=== PATIENT | female | born 1955 | race Hispanic/Latino ===

== ENCOUNTER 2017-07-25 14:35 | Outpatient (CLI) | payer OTHER ==
--- NOTE | 2017-07-25 16:28 | Mammography Report ---
BILATERAL DIGITAL SCREENING MAMMOGRAM with CAD : 07/25/17 14:35:00 CLINICAL: Routine screening. COMPARISON:08/09/16, 08/11/15 and 08/04/14 FINDINGS: The breasts are heterogeneously dense, which may obscure small masses. No mass, architectural distortion or suspicious calcifications. IMPRESSION: No mammographic evidence of malignancy. BI-RADS CATEGORY: 2 -- Benign RECOMMENDATION: Routine mammographic screening in one year. COMMENT: Patient follow-up letters are generated by our [employer] application.
== END 2017-07-25 14:36 | disposition home or self-care (01) ==
LOC: SPVWC 14:35
PROVIDERS: ATTEND Internal Medicine
DX: Z12.31 Encounter for screening mammogram for malignant neoplasm of breast (principal)
CPT/HCPCS: 77067; G0202

== ENCOUNTER 2019-06-18 08:38 | Outpatient (CLI) | payer OTHER ==
--- NOTE | 2019-06-21 08:33 | Mammography Report ---
BILATERAL DIGITAL SCREENING MAMMOGRAM WITH CAD INDICATION: Screening. COMPARISONS: 09/11/2018 FINDINGS: Craniocaudal and mediolateral oblique views of both breasts were obtained using 2-D digital acquisition. In addition to standard review, the examination was analyzed for possible abnormalities using a computer-assisted detection device (iCAD). The breast tissue is heterogeneously dense, which may obscure small masses. Bilateral asymmetries require additional imaging. No architectural distortion or suspicious calcifica tions. IMPRESSION: Lateral asymmetries requiring additional imaging. Recommend recall for bilateral spot compression vie ws and bilateral breast ultrasound if needed. BI-RADS CATEGORY 0: INCOMPLETE - NEED ADDITIONAL IMAGING EVALUATION AND/OR PRIOR MAMMOGRAMS FOR COMP ARISON Information is entered into a reminder system for a target due date for the next mammogram. The resul ts and recommendations were sent to the patient by mail. Signer Name: Zen Fung MD Signed: 06/21/2019 8:29 AM Workstation Name: [id number]
== END 2019-06-18 08:39 | disposition home or self-care (01) ==
LOC: SPVWC 08:38
PROVIDERS: ATTEND Internal Medicine
DX: Z12.31 Encounter for screening mammogram for malignant neoplasm of breast (principal)
CPT/HCPCS: 77067

== ENCOUNTER 2019-07-09 10:51 | Outpatient (CLI) | payer OTHER ==
--- NOTE | 2019-07-09 15:46 | Ultrasound Report ---
BILATERAL DIGITAL DIAGNOSTIC MAMMOGRAM WITHOUT CAD 07/09/2019 RIGHT COMPLETE BREAST ULTRASOUND INDICATION: Recall to evaluate bilateral asymmetries. TECHNIQUE: Digital bilateral mammographic imaging was performed. COMPARISON: 06/18/2019 FINDINGS: Breast Density: The breasts are heterogeneously dense, which may obscure small masses. MAMMOGRAPHIC FINDINGS: Left mammographic views are negative. Satisfactory effacement of asymmetries. Partial effacement of right asymmetries on the MLO view. Other views are negative. ULTRASOUND FINDINGS: Complete sonographic evaluation of all 4 quadrants and retroareolar region was p erformed. Ultrasound of the right breast demonstrated normal fibroglandular structures with no mass , cyst or shadowing. IMPRESSION: Negative bilateral mammogram and negative right breast ultrasound. Follow up recommendation: Routine yearly BI-RADS Category 1: Negative. A "normal" or negative report should not discourage follow up or biopsy of a clinically significant f inding. A written summary of these findings will be mailed to the patient. The patient will be entered into a mammography reporting system which will generate a reminder letter for the patient's next appointmen t at the appropriate interval. According to the [employer], yearly mammograms are recommended starting at age 40 and continuing as long as a woman is in good health. Breast MRI is recommended for women with an marcos roximately 20-25% or greater lifetime risk of breast cancer, including women with a strong family his tory of breast or ovarian cancer and women who have been treated for Hodgkin's disease. Signer Name: Zen Fung MD Signed: 07/09/2019 3:42 PM Workstation Name: [id number]
== END 2019-07-09 10:52 | disposition home or self-care (01) ==
LOC: SPVWC 10:51 → MAMMO 10:52
PROVIDERS: ATTEND Internal Medicine
DX: R92.8 Other abnormal and inconclusive findings on diagnostic imaging of breast (principal)
CPT/HCPCS: 77066

== ENCOUNTER 2020-08-01 09:05 | Outpatient (CLI) | payer MEDICARE ==
--- NOTE | 2020-08-01 09:51 | Mammography Report ---
DIGITAL DIAGNOSTIC MAMMOGRAM WITH CAD, 08/01/2020 INDICATION: Abnormal screening mammogram TECHNIQUE: Digital left mammographic imaging was performed. Magnification views were obtained. This examination was interpreted with the benefit of Computer-aided Detection analysis. COMPARISON: Recent screening mammogram 07/11/2020 FINDINGS: Breast Density: The breasts are heterogeneously dense, which may obscure small masses. There is small grouped area of calcifications in the upper outer quadrant of the left breast approxim ately 4 cm deep to the nipple. Calcifications are not clearly benign on magnification views and there fore further evaluation with stereotactic biopsy should be performed. IMPRESSION: Grouped left breast microcalcifications, upper outer quadrant. Recommend stereotactic bio psy. Follow up recommendation: Left stereotactic biopsy. BI-RADS Category 4: Suspicious for Malignancy. A "normal" or negative report should not discourage follow up or biopsy of a clinically significant f inding. A written summary of these findings will be mailed to the patient. The patient will be entered into a mammography reporting system which will generate a reminder letter for the patient's next appointmen t at the appropriate interval. According to the [employer], yearly mammograms are recommended starting at age 40 and continuing as long as a woman is in good health. Breast MRI is recommended for women with an marcos roximately 20-25% or greater lifetime risk of breast cancer, including women with a strong family his tory of breast or ovarian cancer and women who have been treated for Hodgkin's disease. Signer Name: Emily Godoy MD Signed: 08/01/2020 9:46 AM Workstation Name: [id number]
== END 2020-08-01 09:06 | disposition home or self-care (01) ==
LOC: SPVWC 09:05
PROVIDERS: ATTEND Internal Medicine
DX: R92.8 Other abnormal and inconclusive findings on diagnostic imaging of breast (principal)